=== PATIENT | female | born 1955 | race Caucasian/White ===

== ENCOUNTER → 2017-12-30 | Day surgery (SDC) | payer OTHER, MEDICAID | END | disposition home or self-care (01) | LOC: ESDC 09:26 | PROVIDERS: ATTEND Podiatrist Foot & Ankle Surgery | DX: C49.21 Malignant neoplasm of connective and soft tissue of right lower limb, including hip (principal) ==

== ENCOUNTER → 2018-01-22 | Day surgery (SDC) | payer MEDICAID, OTHER ==
[~2018-01-22] MED LIST: ACETAMINOPHEN/HYDROcodone 325 MG/5 MG TAB ONE; BUPIVACAINE HCL PF 0.25% 10 ML VIAL ONE; BUPIVACAINE/EPINEPHRINE 0.5% PF 10 ML VIAL ONE; ISOSULFAN BLUE 50 MG/5 ML VIAL SQ ONE; KETOROLAC TROMETHAMINE 30 MG/ML (IVP) VIAL IV PUSH ONE; LACTATED RINGER'S 1000 ML INJ 1,000 ML ONE; MIDAZOLAM HCL 2 MG/2 ML VIAL ONE; ONDANSETRON HCL 4 MG/2 ML VIAL IV PUSH ONE; PROPOFOL 200 MG/20 ML AMP IV ONE; ceFAZolin 2 GM PREMIX 50 ML ONE
--- NOTE | 2018-01-22 15:40 | TN ---
cc: Mike Stroud MD DATE OF SURGERY: 01/22/2018 DATE OF PROCEDURE: 01/22/2018. PREOPERATIVE DIAGNOSIS: Right first toe intermediate thickness melanoma. POSTOPERATIVE DIAGNOSIS: Right first toe intermediate thickness melanoma. PROCEDURE PERFORMED: Right inguinal sentinel lymph node biopsy. ATTENDING SURGEON: MD Maximus RESEARCH SUPPORT SPECIALIST: None. ANESTHESIA: General and local anesthetic. ESTIMATED BLOOD LOSS: Less than 10 mL. COMPLICATIONS: None. FINDINGS: Normal inferior inguinal lymph node, possibly mildly reactive. No obvious gross melanoma or metastasis. Capsule was slightly violated once the lymph node was removed from the patient due to retraction. The node was completely excised. INDICATIONS: The patient is a 62-year-old female who developed an intermediate thickness melanoma of the right first toe. She underwent evaluation by Surgical Oncology as well as a Podiatry. She was recommended to undergo first toe amputation for local control and excision of the primary site as well as sentinel lymph node biopsy for staging. The patient is clinically node negative. Risks, benefits and alternatives were discussed with the patient including risk of chronic lymphedema with sentinel lymph node biopsies, and she agreed to undergo the procedure. PROCEDURE: The patient was taken to the operating room and placed in a supine position with the patient under general anesthesia with LMA airway. The patient underwent preoperative lymphoscintigraphy from the primary site which was in the right toe. This was marked in the right inguinal lymph node basin. We shaved, prepped and draped the right inguinal lymph node area over the thigh. Timeout was performed. Local anesthetic was instilled in the planned excision site. We made a small 2.5 to 3 cm vertical incision with a 15 blade scalpel. Bovie electrocautery was used to dissect through the subcutaneous tissue down past the superficial fascia of the thigh. We used the probe to guide us and we easily identified the inferior inguinal lymph node. This was a rather large but appeared reactive and soft. This was carefully excised completely avoiding to remove the entire node and its capsule, using the right angle as well as the Bovie electrocautery. We had excellent hemostasis, and the node was removed intact with the exception of a small tear in the capsule which was due to retraction after the node was removed from the patient. I irrigated out this cavity until suctioning was clear, again had excellent hemostasis. We did place some [id number] 3-0 Vicryl sutures to close the space as well as to reapproximate lymphatic tissue. We closed the subcutaneous tissue with 3-0 Vicryl, 4-0 Monocryl and Dermabond. At this point in time, the patient would continue anesthesia, as she was undergoing the first toe amputation by Dr. Acevedo. Please see Dr. Acevedo's separate dictated procedure note. The patient tolerated the procedure well. No apparent complications. All counts were correct. I was present and scrubbed for the entire procedure. MD APRIL Judd/TATIANNA , 03:24 PM , 03:39 PM
--- NOTE | 2018-01-22 15:59 | MP ---
cc: Xavier Acevedo DPM DATE OF OPERATION: 01/22/2018 PREOPERATIVE DIAGNOSIS: Right hallux nail bed melanoma. POSTOPERATIVE DIAGNOSIS: Right hallux nail bed melanoma. PROCEDURE PERFORMED: Right hallux amputation at the same time a sentinel lymph node biopsy was done per surgical oncologist, Dr. Mike Stroud. ESTIMATED BLOOD LOSS: Less than 50 mL SPECIMENS: Right hallux for margin check, pathological analysis and right groin lymph node. INJECTABLES: 0.25% Marcaine plain, approximately 15 mL. TOURNIQUET: Approximately 20 minutes at a setting of 215 mmHg at the patient's right ankle. DISPOSITION: Discharge home when stable per same day surgery criteria. 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 We devised a plan to move forward with removal of a source as well as amputation of the hallux with at least a 2 cm margin and a lymph node biopsy. No guarantees were given, or implied regarding the outcome. The patient understood there may be need for more surgery at a later date and unfortunately possibly spread of melanoma and need for more intervention regarding metastasis. PROCEDURE IN DETAIL: Under mild sedation, the patient was brought into the operating room, placed on the operating table in the supine position. Following the induction of general anesthesia, the right groin and distal was then scrubbed, prepped and draped in the usual aseptic fashion. The right sentinel lymph node biopsy took place first by Dr. Mike Stroud. Once this was completed, the right hallux was elevated, exsanguinated and a previously placed ankle tourniquet was inflated to 215 mmHg. The right hallux was examined. There was noted to be a fibrotic mixed granular ulcer lesion of the dorsal aspect of the hallux. The most proximal aspect of the nail bed was measured and a 2 cm margin was drawn. Next, the joint was then demarcated at the level of the first MPJ and appropriate flaps were then drawn for a fishmouth type incision. This was noted to be well beyond the 2 cm margin deeming it an appropriate incision to hopefully eradicate any further spread of the melanoma. A full-thickness incision was made proximal to the 2 cm margin. Sharp and blunt dissection was carried down to the neurovascular structures that were bovied and ligated. The extensor hallucis longus tendon was then also identified, severed. Sharp and blunt dissection was carried down subperiosteal. The capsular layer was then identified and this was sharply dissected and the digit was sharply disarticulated at this point. The wound was then flushed with copious amounts of normal saline. Deep closure took place utilizing Vicryl in the deep structures, the EHL and FHL. The skin was closed utilizing nylon. Upon release of the tourniquet, there was a prompt hyperemic response to all digits without any delayed capillary fill time to lesser digits 2 through 5. A bulky bandage was placed, the patient positioned within a postoperative shoe. She is permitted heel weight-bear. She will ice, elevate. I will see the patient within 1 week. ELIOT Dhaliwal , 03:38 PM , 03:59 PM
== END | disposition home or self-care (01) ==
LOC: ESDC 08:41
PROVIDERS: ATTEND Surgery
DX: C43.71 Malignant melanoma of right lower limb, including hip (principal)
CPT/HCPCS: 00400; 01470; 01480; 28820; 38500; 88305; 88307; 88311; 88342; J0690; J1885; J2250; J2405; J3010; J7120; 88341; Q9968